=== PATIENT | female | born 2000 | race Caucasian/White ===

== ENCOUNTER 2021-12-23 17:27 | Emergency (ER) | payer BC ==
[~2021-12-23] VITALS: Ht 165.1 cm; Wt 106.4 kg
[2021-12-23 17:35] VITALS: TEMP 97.8
[2021-12-23] MEDS ORDERED: CRANBERRY500 M3 PO (17:48)
[2021-12-23] MEDS ORDERED: XYZAL5 MG PO (17:48)
[2021-12-23] MEDS ORDERED: EPA FISH OIL1 SGL PO (17:48)
[2021-12-23] MEDS ORDERED: CELEXA10 MG PO (17:48)
[2021-12-23 20:10] VITALS: PULSE 70
== END 2021-12-23 20:12 | disposition home or self-care (01) ==
LOC: COL.ER 17:27
DX: Z77.098 Contact with and (suspected) exposure to other hazardous, chiefly nonmedicinal, chemicals (principal)